=== PATIENT | male | born 1960 | race Caucasian/White ===

== ENCOUNTER → 2016-10-28 | Outpatient (CLI) | payer BC ==
[~2016-10-28] MED LIST: CLARITIN10 MG PO; FLUTICASON0.05 MG/A1; PRILOSEC 20MG20 MG PO
== END ==
LOC: LAB 09:40
DX: R50.9 Fever, unspecified (principal); B33.0 Epidemic myalgia; R05 Cough

== ENCOUNTER → 2016-12-18 | Outpatient (CLI) | payer BC | LOC: LAB 09:38 | DX: R09.89 Other specified symptoms and signs involving the circulatory and respiratory systems (principal); E78.5 Hyperlipidemia, unspecified; Z12.5 Encounter for screening for malignant neoplasm of prostate ==

== ENCOUNTER → 2016-12-27 | Outpatient (CLI) | payer BC | LOC: RAD 13:03 | DX: R22.0 Localized swelling, mass and lump, head (principal) ==

== ENCOUNTER → 2016-12-30 | Outpatient (CLI) | payer BC ==
[2015-03-03 12:16] VITALS: BP 131/79
== END ==
LOC: LAB 17:50
DX: Z12.10 Encounter for screening for malignant neoplasm of intestinal tract, unspecified (principal)

== ENCOUNTER → 2017-01-10 | Outpatient (CLI) | payer BC ==
[2015-03-03 12:16] VITALS: BP 131/79
== END ==
LOC: CARDREHAB 07:46
DX: Z13.6 Encounter for screening for cardiovascular disorders (principal)
CPT/HCPCS: A9500

== ENCOUNTER → 2017-12-13 | Outpatient (CLI) | payer BC ==
[2015-03-03 12:16] VITALS: BP 131/79
[2017-12-13 10:14] LABS: ALBUMIN 4.3 g/dL (3.5-5.0); BUN/CREATININE RATIO 16.7 (6.0-26.0); CALCIUM 9.8 mg/dL (8.4-10.2); POTASSIUM 4.3 mmol/L (3.6-5.0); TOTAL BILIRUBIN 0.8 mg/dL (0.2-1.3); TOTAL PROTEIN 7.7 g/dL (6.3-8.2)
== END ==
LOC: LAB 09:26
PROVIDERS: Family Medicine
DX: E78.1 Pure hyperglyceridemia (principal); R09.89 Other specified symptoms and signs involving the circulatory and respiratory systems; Z88.2 Allergy status to sulfonamides; Z88.8 Allergy status to other drugs, medicaments and biological substances

== ENCOUNTER → 2018-04-10 | Outpatient (CLI) | payer BC ==
[2015-03-03 12:16] VITALS: BP 131/79
[2018-04-10 08:45] LABS: ALBUMIN 4.3 g/dL (3.5-5.0); DIRECT BILIRUBIN 0.2 mg/dL (0.0-0.4); TOTAL BILIRUBIN 0.6 mg/dL (0.2-1.3)
== END ==
LOC: LAB 07:39
PROVIDERS: Family Medicine
DX: E78.1 Pure hyperglyceridemia (principal)

== ENCOUNTER → 2018-09-18 | Outpatient (CLI) | payer BC ==
[2015-03-03 12:16] VITALS: BP 131/79
== END ==
LOC: LAB 10:14
DX: M25.572 Pain in left ankle and joints of left foot (principal); M79.671 Pain in right foot

== ENCOUNTER → 2018-10-23 | Outpatient (CLI) | payer BC ==
[2015-03-03 12:16] VITALS: BP 131/79
== END ==
LOC: LAB 07:41
DX: M10.072 Idiopathic gout, left ankle and foot (principal)

== ENCOUNTER → 2019-05-20 | Outpatient (CLI) | payer BC ==
[2015-03-03 12:16] VITALS: BP 131/79
[2019-05-20 07:38] LABS: ALBUMIN 4.3 g/dL (3.5-5.0)
[2019-05-20 07:39] LABS: CALCIUM 9.4 mg/dL (8.3-10.5)
[2019-05-20 07:43] LABS: TOTAL BILIRUBIN 0.6 mg/dL (0.2-1.2)
== END ==
LOC: LAB 07:19
PROVIDERS: Family Medicine
DX: Z12.5 Encounter for screening for malignant neoplasm of prostate (principal); R73.03 Prediabetes; E78.5 Hyperlipidemia, unspecified; M1A.00X0 Idiopathic chronic gout, unspecified site, without tophus (tophi)

== ENCOUNTER → 2019-05-21 | Outpatient (CLI) | payer BC ==
[2015-03-03 12:16] VITALS: BP 131/79
[2019-05-21 15:53] LABS: HEMATOCRIT 42.1 % (42.0-52.0); HEMOGLOBIN 14.2 g/dL (13.5-18.0); MEAN PLATELET VOLUME 11.2 fl (7.4-10.4); RED BLOOD COUNT 4.82 M/mm3 (4.20-5.60); RED CELL DISTRIBUTION WIDTH 13.3 % (11.5-14.5); WHITE BLOOD COUNT 9.7 K/mm3 (4.8-10.8)
[2019-05-21 23:14] LABS: HEPATITIS C VIRUS ANTIBODY Negative (Negative)
== END ==
LOC: LAB 15:12
PROVIDERS: Family Medicine
DX: Z00.00 Encounter for general adult medical examination without abnormal findings (principal); Z11.59 Encounter for screening for other viral diseases; G47.33 Obstructive sleep apnea (adult) (pediatric); R53.83 Other fatigue

== ENCOUNTER → 2019-10-16 | Outpatient (CLI) | payer BC ==
[2015-03-03 12:16] VITALS: BP 131/79
[2019-10-16 11:12] LABS: ALBUMIN 4.4 g/dL (3.5-5.0)
[2019-10-16 11:14] LABS: TOTAL PROTEIN 7.7 g/dL (6.4-8.3)
[2019-10-16 11:16] LABS: TOTAL BILIRUBIN 1.1 mg/dL (0.2-1.2)
[2019-10-16 11:20] LABS: DIRECT BILIRUBIN 0.3 mg/dL (0.0-0.5)
== END ==
LOC: LAB 10:44
PROVIDERS: Family Medicine
DX: E78.5 Hyperlipidemia, unspecified (principal)

== ENCOUNTER 2019-11-17 05:33 | Inpatient (IN) | payer BC ==
[~2019-11-17] VITALS: Ht 177.8 cm; Wt 89.6 kg
[2019-11-17] MEDS ORDERED: ZYLOPRIM300 MG PO (05:45)
[2019-11-17] MEDS ORDERED: TOPCARE OMEPRAZ20 MG PO (05:45)
[2019-11-17] MEDS ORDERED: LIPITOR20 M2 PO (05:45)
[2019-11-17 06:05] VITALS: BP 152/90
[2019-11-17 06:05] LABS: EOS # 0.2 (0.04-0.40); EOS % 1.7 % (0.0-4.0); HEMATOCRIT 44.4 % (42.0-52.0); HEMOGLOBIN 15.4 g/dL (13.5-18.0); LYMPH# 1.6 (1.50-4.00); MEAN CELL VOLUME 87 fl (78-100); MEAN CORPUSCULAR HEMOGLOBIN 30 pg (27-31); MEAN CORPUSCULAR HGB CONC 35 g/dL (33-37); MEAN PLATELET VOLUME 11.3 fl (7.4-10.4); PLATELET COUNT 288 K/mm3 (130-400); RED BLOOD COUNT 5.13 M/mm3 (4.20-5.60); RED CELL DISTRIBUTION WIDTH 14.2 % (11.5-14.5); WHITE BLOOD COUNT 12.5 K/mm3 (4.8-10.8)
[2019-11-17 06:09] LABS: NEU # 9.5 (1.40-6.50)
[2019-11-17 06:11] LABS: ALBUMIN 4.6 g/dL (3.5-5.0)
[2019-11-17 06:12] LABS: CALCIUM 9.4 mg/dL (8.3-10.5)
[2019-11-17 06:13] LABS: TOTAL PROTEIN 7.7 g/dL (6.4-8.3)
[2019-11-17 06:15] LABS: TOTAL BILIRUBIN 0.9 mg/dL (0.2-1.2)
[2019-11-17 06:17] LABS: URINE APPEARANCE CLEAR; URINE COLOR YELLOW; URINE PROTEIN(semi-quant) TRACE mg/dL (NEGATIVE)
[2019-11-17 06:18] LABS: URINE BILIRUBIN NEGATIVE (NEGATIVE); URINE BLOOD TRACE (NEGATIVE); URINE GLUCOSE NEGATIVE (NEGATIVE); URINE KETONE NEGATIVE (NEGATIVE); URINE LEUKOCYTE ESTERASE TRACE (NEGATIVE); URINE NITRATE NEGATIVE (NEGATIVE); URINE UROBILINOGEN NORMAL (NORMAL)
[2019-11-17 06:20] LABS: URINE MUCUS PRESENT (NOT PRESENT)
[2019-11-17 09:55] VITALS: BP 129/81
[2019-11-17 10:20] VITALS: BP 135/79
[2019-11-17 14:22] VITALS: BP 142/82
[2019-11-17 18:37] VITALS: BP 141/74
[2019-11-17 21:38] VITALS: BP 130/75
[2019-11-18 02:29] VITALS: BP 117/63
[2019-11-18 06:21] VITALS: BP 120/60
[2019-11-18 06:50] LABS: ALBUMIN 3.1 g/dL (3.5-5.0); POTASSIUM 3.8 mmol/L (3.5-5.1)
[2019-11-18 06:51] LABS: CALCIUM 7.4 mg/dL (8.3-10.5); HEMATOCRIT 38.3 % (42.0-52.0); HEMOGLOBIN 12.7 g/dL (13.5-18.0); MEAN CELL VOLUME 89 fl (78-100); MEAN CORPUSCULAR HEMOGLOBIN 30 pg (27-31); MEAN CORPUSCULAR HGB CONC 33 g/dL (33-37); MEAN PLATELET VOLUME 11.6 fl (7.4-10.4); PLATELET COUNT 182 K/mm3 (130-400); RED CELL DISTRIBUTION WIDTH 14.5 % (11.5-14.5); WHITE BLOOD COUNT 8.5 K/mm3 (4.8-10.8)
[2019-11-18 06:53] LABS: TOTAL PROTEIN 5.4 g/dL (6.4-8.3)
[2019-11-18 06:54] LABS: TOTAL BILIRUBIN 0.7 mg/dL (0.2-1.2)
[2019-11-18 07:41] LABS: LYMPHOCYTE 30 % (20-51); MONOCYTE 8 % (3-10); NEUTROPHILS 58 % (42-75)
[2019-11-18 09:38] VITALS: BP 137/79
[2019-11-18 12:04] LABS: GASTROCCULT POSITIVE
[2019-11-18 14:42] VITALS: BP 146/78
[2019-11-18 17:17] VITALS: BP 139/87
[2019-11-18 22:02] VITALS: BP 153/79
[2019-11-19 01:57] VITALS: BP 152/79
[2019-11-19 05:41] VITALS: BP 167/89
[2019-11-19 07:52] LABS: POTASSIUM 3.7 mmol/L (3.5-5.1)
[2019-11-19 07:53] LABS: CALCIUM 7.9 mg/dL (8.3-10.5)
[2019-11-19 09:24] VITALS: BP 144/81
[2019-11-19 13:41] VITALS: BP 121/68
[2019-11-19 17:10] VITALS: BP 142/79
[2019-11-19 21:47] VITALS: BP 144/79
[2019-11-20 01:51] VITALS: BP 129/82
[2019-11-20 05:28] VITALS: BP 131/73
[2019-11-20 10:18] VITALS: BP 156/70
[2019-11-20 13:48] VITALS: BP 147/83
== END 2019-11-20 14:00 | disposition home or self-care (01) | DRG 390 ==
LOC: ED 05:33 → MED/SURG 08:17
PROVIDERS: Family Medicine; Nurse Practitioner Family; Nurse Practitioner Primary Care; ADMIT Physician Assistant
DX: K56.609 Unspecified intestinal obstruction, unspecified as to partial versus complete obstruction (principal); K52.9 Noninfective gastroenteritis and colitis, unspecified; K80.20 Calculus of gallbladder without cholecystitis without obstruction; K20.0 Eosinophilic esophagitis; E78.5 Hyperlipidemia, unspecified; E86.0 Dehydration; K57.90 Diverticulosis of intestine, part unspecified, without perforation or abscess without bleeding; Z88.2 Allergy status to sulfonamides; Z88.1 Allergy status to other antibiotic agents
CPT/HCPCS: C9113; J1650; J1885; J2270; J2405; J7030; Q9967

== ENCOUNTER → 2021-04-06 | Outpatient (REF) ==
[~2021-04-06] MED LIST changes: +LIPITOR20 M2 PO; +TOPCARE OMEPRAZ20 MG PO; +ZYLOPRIM300 MG PO
== END ==
LOC: LAB 09:01 → EDSTATUS 09:02
DX: Z00.00 Encounter for general adult medical examination without abnormal findings (principal); Z12.5 Encounter for screening for malignant neoplasm of prostate; Z13.1 Encounter for screening for diabetes mellitus; E78.2 Mixed hyperlipidemia; M10.079 Idiopathic gout, unspecified ankle and foot

== ENCOUNTER 2021-04-13 08:59 | Outpatient (RCR) | payer BC | END 2021-05-11 17:00 | disposition still patient (30) | LOC: PT 08:59 | DX: S16.1XXD Strain of muscle, fascia and tendon at neck level, subsequent encounter (principal); M25.552 Pain in left hip ==

== ENCOUNTER → 2021-04-20 | Outpatient (CLI) | payer BC | LOC: RAD 08:40 | DX: M25.552 Pain in left hip (principal); S16.1XXD Strain of muscle, fascia and tendon at neck level, subsequent encounter ==

== ENCOUNTER → 2021-05-28 | Outpatient (CLI) | payer BC | LOC: LAB 07:16 | DX: Z20.822 Contact with and (suspected) exposure to COVID-19 (principal) ==

== ENCOUNTER → 2021-09-07 | Outpatient (CLI) | payer BC | LOC: LAB 16:49 | DX: Z20.822 Contact with and (suspected) exposure to COVID-19 (principal) ==

== ENCOUNTER → 2021-09-10 | Outpatient (CLI) | payer BC | LOC: LAB 15:37 | DX: R05.9 Cough, unspecified (principal); Z20.822 Contact with and (suspected) exposure to COVID-19 ==

== ENCOUNTER 2021-12-15 19:43 | Emergency (ER) | payer BC ==
[~2021-12-15] VITALS: Ht 175.3 cm; Wt 80.9 kg
[2021-12-15] MEDS ORDERED: ZETIA10 M1 PO (20:21)
[2021-12-15 22:28] LABS: BASO # 0.04 K/mm3 (0.02-0.10); EOS # 0.07 K/mm3 (0.04-0.40); EOS % 0.4 % (0.0-4.0); HEMATOCRIT 49.5 % (42.0-52.0); HEMOGLOBIN 16.9 g/dL (13.5-18.0); LYMPH# 0.96 K/mm3 (1.50-4.00); MEAN CELL VOLUME 90 fl (78-100); MEAN CORPUSCULAR HEMOGLOBIN 31 pg (27-31); MEAN CORPUSCULAR HGB CONC 34 g/dL (33-37); MEAN PLATELET VOLUME 11.7 fl (7.4-10.4); MONO # 0.45 K/mm3 (0.20-0.80); NEU # 17.57 K/mm3 (1.40-6.50); PLATELET COUNT 240 K/mm3 (130-400); RED BLOOD COUNT 5.49 M/mm3 (4.20-5.60); WHITE BLOOD COUNT 19.2 K/mm3 (4.8-10.8)
[2021-12-15 22:32] LABS: ALBUMIN 5.2 g/dL (3.5-5.0); POTASSIUM 4.5 mmol/L (3.5-5.1)
[2021-12-15 22:33] LABS: CALCIUM 10.9 mg/dL (8.3-10.5)
[2021-12-16 01:15] VITALS: BP 131/72
[2021-12-16] MEDS ORDERED: LIPITOR 10M10 MG/TAB PO (02:48)
== END 2021-12-16 01:15 | disposition other institution (70) ==
LOC: ED 19:43
PROVIDERS: Family Medicine
DX: A08.4 Viral intestinal infection, unspecified (principal); K56.7 Ileus, unspecified; E86.0 Dehydration
CPT/HCPCS: J2250; J3010; J3480; Q9967

== ENCOUNTER 2021-12-16 01:15 | Inpatient (IN) | payer BC ==
[~2021-12-16] VITALS: Ht 175.3 cm; Wt 79.6 kg
[~2021-12-16 01:15] MED LIST changes: +ZETIA10 M1 PO
[2021-12-16 02:34] VITALS: BP 131/72
[2021-12-16] MEDS ORDERED: LIPITOR 10M10 MG/TAB PO (02:48)
[2021-12-16 06:04] VITALS: BP 128/67
[2021-12-16 08:39] LABS: HEMATOCRIT 42.6 % (42.0-52.0); HEMOGLOBIN 14.5 g/dL (13.5-18.0); MEAN PLATELET VOLUME 11.5 fl (7.4-10.4); RED BLOOD COUNT 4.74 M/mm3 (4.20-5.60); RED CELL DISTRIBUTION WIDTH 12.9 % (11.5-14.5); WHITE BLOOD COUNT 14.5 K/mm3 (4.8-10.8)
[2021-12-16 08:43] LABS: POTASSIUM 4.2 mmol/L (3.5-5.1)
[2021-12-16 08:44] LABS: CALCIUM 9.2 mg/dL (8.3-10.5)
[2021-12-16 09:34] VITALS: BP 130/78
[2021-12-16 14:10] VITALS: BP 126/76
[2021-12-16 17:39] VITALS: BP 121/77
[2021-12-16 21:27] VITALS: BP 134/71
[2021-12-17 05:49] VITALS: BP 126/72
[2021-12-17 09:36] VITALS: BP 122/79
[2021-12-17 13:09] LABS: BASO # 0.04 K/mm3 (0.02-0.10); EOS # 0.34 K/mm3 (0.04-0.40); EOS % 3.6 % (0.0-4.0); HEMATOCRIT 44.4 % (42.0-52.0); HEMOGLOBIN 14.7 g/dL (13.5-18.0); LYMPH# 1.56 K/mm3 (1.50-4.00); MEAN CELL VOLUME 93 fl (78-100); MEAN CORPUSCULAR HEMOGLOBIN 31 pg (27-31); MEAN CORPUSCULAR HGB CONC 33 g/dL (33-37); MEAN PLATELET VOLUME 11.1 fl (7.4-10.4); MONO # 0.53 K/mm3 (0.20-0.80); NEU # 7.01 K/mm3 (1.40-6.50); PLATELET COUNT 221 K/mm3 (130-400); RED CELL DISTRIBUTION WIDTH 13.1 % (11.5-14.5); WHITE BLOOD COUNT 9.5 K/mm3 (4.8-10.8)
[2021-12-17 13:13] LABS: ALBUMIN 4.5 g/dL (3.5-5.0); POTASSIUM 4.5 mmol/L (3.5-5.1)
[2021-12-17 13:16] LABS: TOTAL PROTEIN 7.7 g/dL (6.4-8.3)
[2021-12-17 13:17] LABS: TOTAL BILIRUBIN 1.8 mg/dL (0.2-1.2)
[2021-12-17 13:35] VITALS: BP 133/80
== END 2021-12-17 16:05 | disposition home or self-care (01) | DRG 390 ==
LOC: MED/SURG 01:15
PROVIDERS: Nurse Practitioner; ADMIT Family Medicine
DX: K56.609 Unspecified intestinal obstruction, unspecified as to partial versus complete obstruction (principal); K56.7 Ileus, unspecified; K21.9 Gastro-esophageal reflux disease without esophagitis; M10.9 Gout, unspecified; D72.829 Elevated white blood cell count, unspecified; E86.0 Dehydration; E78.5 Hyperlipidemia, unspecified; Z88.2 Allergy status to sulfonamides; Z88.1 Allergy status to other antibiotic agents
CPT/HCPCS: C9113; J1650; J1885; J3480; J3490

== ENCOUNTER → 2022-04-11 | Outpatient (CLI) | payer BC ==
[~2022-04-11] MED LIST changes: +LIPITOR 10M10 MG/TAB PO
== END ==
LOC: LAB 09:00
DX: Z20.822 Contact with and (suspected) exposure to COVID-19 (principal)

== ENCOUNTER → 2022-05-10 | Outpatient (REF) | LOC: LAB 08:48 | DX: Z12.5 Encounter for screening for malignant neoplasm of prostate (principal); Z13.1 Encounter for screening for diabetes mellitus; M10.00 Idiopathic gout, unspecified site; E78.2 Mixed hyperlipidemia ==

== ENCOUNTER → 2023-07-11 | Outpatient (CLI) | payer BC | LOC: CARDREHAB 07:49 | DX: Z13.6 Encounter for screening for cardiovascular disorders (principal) | CPT/HCPCS: A9500; J2785 ==

== ENCOUNTER → 2024-07-17 | Outpatient (CLI) | payer BC ==
[2024-07-17 08:41] LABS: BASO # 0.03 K/mm3 (0.02-0.10); EOS # 0.21 K/mm3 (0.04-0.40); EOS % 2.1 % (0.0-4.0); HEMATOCRIT 41.9 % (42.0-52.0); HEMOGLOBIN 14.3 g/dL (13.5-18.0); LYMPH# 2.09 K/mm3 (1.50-4.00); MEAN CELL VOLUME 89 fl (78-100); MEAN CORPUSCULAR HEMOGLOBIN 30 pg (27-31); MEAN CORPUSCULAR HGB CONC 34 g/dL (33-37); MONO # 0.67 K/mm3 (0.20-0.80); NEU # 6.85 K/mm3 (1.40-6.50); PLATELET COUNT 225 K/mm3 (130-400); RED BLOOD COUNT 4.71 M/mm3 (4.20-5.60); RED CELL DISTRIBUTION WIDTH 13.5 % (11.5-14.5)
[2024-07-17 08:55] LABS: ALBUMIN 4.3 g/dL (3.4-4.8)
[2024-07-17 08:56] LABS: CALCIUM 9.3 mg/dL (8.3-10.5)
[2024-07-17 08:58] LABS: TOTAL PROTEIN 7.5 g/dL (6.2-8.1)
[2024-07-17 08:59] LABS: TOTAL BILIRUBIN 0.8 mg/dL (0.2-1.2)
[2024-07-17 09:04] LABS: MAGNESIUM 1.8 mg/dL (1.60-2.60)
[2024-07-17 18:35] LABS: TESTOSTERONE 630 ng/dL (221-716)
== END ==
LOC: LAB 08:28
PROVIDERS: Internal Medicine
DX: Z12.31 Encounter for screening mammogram for malignant neoplasm of breast (principal)

== ENCOUNTER → 2024-11-02 | Outpatient (CLI) | payer BC | LOC: LAB 09:34 | DX: R05.9 Cough, unspecified (principal) ==